=== PATIENT | male | born 1950 | race African-American/Black ===

== ENCOUNTER 2017-03-03 06:54 | Day surgery (SDC) | payer BC, MEDICARE ==
--- NOTE | ~2017-03-03 | EGD ---
EGD REPORT [facility] [address] [address] NAME: CASPER DE OLIVEIRA : [birth year] STATUS : REG [facility]#: [id number] AGE: 66 ADM/REG DATE : 03/03/17 MR#: [id number] REPORT SERV DATE: 03/03/17 DICTATED BY: RED HOANG DATE: 03/03/17 REPORT STATUS : Draft TRANSCRIBED BY: [facility] DATE: 03/03/17 Endoscopy Center Patient Name: Casper De Oliveira Date of : 1950 Attending MD: RED HOANG MD Procedure Date No Time: 03/03/2017 Procedure: Upper GI endoscopy Indications: Iron deficiency anemia Referring MD: Josephine Cota Medicines: Propofol per Anesthesia Complications: No immediate complications. Procedure: Pre-Anesthesia Assessment: - ASA Grade Assessment: III - A patient with severe systemic disease. After obtaining informed consent, the endoscope was passed under direct vision. Throughout the procedure, the patient's blood pressure, pulse, and oxygen saturations were monitored continuously. The GIF H190 [id number] was introduced through the mouth, and advanced to the second part of duodenum. The upper GI endoscopy was accomplished without difficulty. The patient tolerated the procedure well. Findings: The examined esophagus was normal. Diffuse moderate inflammation characterized by erosions, erythema and friability was found in the stomach. Biopsies were taken with a cold forceps for histology. The examined duodenum was normal. Biopsies were taken with a cold forceps for histology. Impression: - Normal esophagus. - Chronic gastritis. Biopsied. - Normal examined duodenum. Biopsied. Recommendation: - Discharge patient to home (ambulatory). - Return to nurse practitioner in 3 weeks. Procedure Code(s): --- Professional --- 07674, Esophagogastroduodenoscopy, flexible, transoral; with biopsy, single or multiple Diagnosis Code(s): --- Professional --- K29.50, Unspecified chronic gastritis without bleeding D50.9, Iron deficiency anemia, unspecified EGD REPORT [facility] [address] [place] [address] NAME: CASPER DE OLIVEIRA : [birth year] STATUS : REG [facility]#: [id number] AGE: 66 ADM/REG DATE : 03/03/17 MR#: [id number] REPORT SERV DATE: 03/03/17 DICTATED BY: RED HOANG. DATE: 03/03/17 REPORT STATUS : Draft TRANSCRIBED BY: [employer] DATE: 03/03/17 CPT copyright 2013 [employer]. All rights reserved. The codes documented in this report are preliminary and upon executive personal assistant review may be revised to meet current compliance requirements. Red Hoang MD RED HOANG MD 03/03/2017 7:43 AM This report has been signed electronically. Number of Addenda: 0 Note Initiated On: 03/03/2017 7:32 AM Scope Withdrawal Time 0 hours 0 minutes 0 seconds [address] [place] [address]
--- NOTE | ~2017-03-03 | EGD ---
EGD REPORT [facility] [address] [place] [address] NAME: CASPER DE OLIVEIRA : [birth year] STATUS : REG [facility]#: [id number] AGE: 66 ADM/REG DATE : 03/03/17 MR#: [id number] REPORT SERV DATE: 03/03/17 DICTATED BY: RED HOANG DATE: 03/03/17 REPORT STATUS : Draft TRANSCRIBED BY: [facility] DATE: 03/03/17 Endoscopy Center Patient Name: Casper De Oliveira Date of : 1950 Attending MD: RED HOANG MD Procedure Date No Time: 03/03/2017 Procedure: Colonoscopy Indications: Iron deficiency anemia Referring MD: Josephine Cota Medicines: Propofol per Anesthesia Complications: No immediate complications. Procedure: Pre-Anesthesia Assessment: - ASA Grade Assessment: III - A patient with severe systemic disease. After I obtained informed consent, the scope was passed under direct vision. Throughout the procedure, the patient's blood pressure, pulse, and oxygen saturations were monitored continuously. The PCF [id number] was introduced through the anus and advanced to the cecum, identified by appendiceal orifice and ileocecal valve. The colonoscopy was performed without difficulty. The patient tolerated the procedure well. The quality of the bowel preparation was good. Findings: The perianal and digital rectal examinations were normal. Internal hemorrhoids were found, and they were Grade I (internal hemorrhoids that do not prolapse). The colon (entire examined portion) appeared normal. Impression: - Internal hemorrhoids. - The entire examined colon is normal. Recommendation: - Discharge patient to home. - Return to nurse practitioner in 3 weeks. Procedure Code(s): --- Professional --- 04634, Colonoscopy, flexible, proximal to splenic flexure; diagnostic, with or without collection of specimen(s) by brushing or washing, with or without colon decompression (separate procedure) Diagnosis Code(s): --- Professional --- K64.0, First degree hemorrhoids D50.9, Iron deficiency anemia, unspecified EGD REPORT [facility] [address] [place] [address] [place] [address] NAME: CASPER DE OLIVEIRA : [birth year] STATUS : REG [facility]#: [id number] AGE: 66 ADM/REG DATE : 03/03/17 MR#: [id number] REPORT SERV DATE: 03/03/17 DICTATED BY: RED HOANG. DATE: 03/03/17 REPORT STATUS : Draft TRANSCRIBED BY: [facility] DATE: 03/03/17 CPT copyright 2013 [employer]. All rights reserved. The codes documented in this report are preliminary and upon store receiving specialist review may be revised to meet current compliance requirements. Red Hoang MD RED HOANG MD 03/03/2017 7:57 AM This report has been signed electronically. Number of Addenda: 0 Note Initiated On: 03/03/2017 7:31 AM Scope Withdrawal Time 0 hours 7 minutes 45 seconds [address] [place] [address]
[~2017-03-03 06:54] MED LIST: AFEDITAB30 MG PO; GINSENG PO; GLUCOTRO10 PO; I40 PO; LAMICTAL10 PO; LIPITOR40 PO; LISINOPRIL40 MG PO; NORV25 PO; PLAVIX PO; TRESIBA FL200 UNIT/1 SC; ZOL100 PO
== END 2017-03-03 23:59 | disposition home health service (06) ==
LOC: DMU 06:54
PROVIDERS: Internal Medicine Gastroenterology
PROC: 0DJD8ZZ Inspection of Lower Intestinal Tract, Via Natural or Artificial Opening Endoscopic (ICD-10-PCS; 2017-03-03)
PROC: 0DB68ZX Excision of Stomach, Via Natural or Artificial Opening Endoscopic, Diagnostic (ICD-10-PCS; principal; 2017-03-03 08:00)
PROC: 0DB98ZX Excision of Duodenum, Via Natural or Artificial Opening Endoscopic, Diagnostic (ICD-10-PCS; 2017-03-03 08:00)
DX: K29.50 Unspecified chronic gastritis without bleeding (principal); K64.0 First degree hemorrhoids; D50.9 Iron deficiency anemia, unspecified; I10 Essential (primary) hypertension; E78.00 Pure hypercholesterolemia, unspecified; M19.90 Unspecified osteoarthritis, unspecified site; E11.9 Type 2 diabetes mellitus without complications; F32.9 Major depressive disorder, single episode, unspecified; Z86.73 Personal history of transient ischemic attack (TIA), and cerebral infarction without residual deficits; Z98.890 Other specified postprocedural states; Z87.891 Personal history of nicotine dependence
CPT/HCPCS: 82962; 88305